=== PATIENT | male | born 1975 | race Caucasian/White ===

== ENCOUNTER 2024-05-10 08:39 | Outpatient (CLI) | payer OTHER | END 2024-05-10 08:40 | disposition home or self-care (01) | LOC: CSHSLEEP 08:39 | PROVIDERS: ATTEND Family Medicine | DX: G47.33 Obstructive sleep apnea (adult) (pediatric) (principal); E11.9 Type 2 diabetes mellitus without complications; G47.31 Primary central sleep apnea | CPT/HCPCS: 95800 ==

== ENCOUNTER 2024-06-07 09:06 | Outpatient (CLI) | payer OTHER | END 2024-06-07 09:07 | disposition home or self-care (01) | LOC: CSHSLEEP 09:06 | PROVIDERS: ATTEND Family Medicine | DX: G47.33 Obstructive sleep apnea (adult) (pediatric) (principal); E11.9 Type 2 diabetes mellitus without complications | CPT/HCPCS: 95811 ==